=== PATIENT | female | born 1940 | race Caucasian/White ===

== ENCOUNTER → 2018-10-30 | Outpatient (CLI) | payer OTHER | LOC: M.ULTRA 09:30 | DX: K76.0 Fatty (change of) liver, not elsewhere classified (principal); Z90.49 Acquired absence of other specified parts of digestive tract ==

== ENCOUNTER → 2019-07-09 | Outpatient (CLI) | payer OTHER | LOC: M.NUC 06:52 | DX: R10.10 Upper abdominal pain, unspecified (principal) ==

== ENCOUNTER → 2019-07-16 | Outpatient (CLI) | payer OTHER ==
[2019-07-16 08:22] LABS: CREATININE 0.8 mg/dL (0.6-1.3)
== END ==
LOC: M.LAB 07:56 → M.CT 09:00
PROVIDERS: Internal Medicine Gastroenterology
DX: K76.0 Fatty (change of) liver, not elsewhere classified (principal); K57.30 Diverticulosis of large intestine without perforation or abscess without bleeding; K56.41 Fecal impaction; I25.10 Atherosclerotic heart disease of native coronary artery without angina pectoris; I70.0 Atherosclerosis of aorta

== ENCOUNTER → 2020-12-03 | Outpatient (CLI) | payer MEDICARE | LOC: M.MRI 10:48 | PROVIDERS: ATTEND Family Medicine | DX: M47.812 Spondylosis without myelopathy or radiculopathy, cervical region (principal); M48.02 Spinal stenosis, cervical region; M51.36 Other intervertebral disc degeneration, lumbar region; E11.9 Type 2 diabetes mellitus without complications; M25.511 Pain in right shoulder; G89.29 Other chronic pain; M54.2 Cervicalgia; I10 Essential (primary) hypertension; K76.0 Fatty (change of) liver, not elsewhere classified ==

== ENCOUNTER 2021-04-12 13:22 | Emergency (ER) | payer MEDICARE ==
[~2021-04-12] VITALS: Ht 162.6 cm; Wt 63.5 kg
[2021-04-12] MEDS ORDERED: METFORMIN HCL500 M3 PO (13:35)
[2021-04-12] MEDS ORDERED: TRULICITY0.75 MG/0. SUBQ (13:35)
[2021-04-12] MEDS ORDERED: VERAPAMIL ER100 MG PO (13:35)
[2021-04-12 13:55] LABS: ABSOLUTE EOSINOPHILS 0.1 thou/uL (0.0-0.7); ABSOLUTE MONOCYTES 1.1 thou/uL (0.0-1.2); ABSOLUTE NEUTROPHILS 8.7 thou/uL (1.6-8.1); BASOPHILS 0.2 %; EOSINOPHILS 0.5 %; HEMATOCRIT 38.9 % (37.0-47.0); HEMOGLOBIN 13.1 gm/dL (12.0-15.0); LYMPHOCYTES 16.6 %; MCH 28.4 pg (26.0-34.0); MCHC 33.7 g/dL (28.0-37.0); MCV 84.3 fL (80.0-100.0); MONOCYTES 9.1 %; MPV 9.7 fl. (7.2-11.1); NUCLEATED RBCS 0 /100WBC; PLATELET COUNT* 372 thou/uL (150-400); POLYS 73.6 %; RBC 4.61 mil/uL (4.20-5.00); RDW-CV 13.9 % (10.5-14.5); WBC 11.9 thou/uL (4.0-11.0)
[2021-04-12 14:05] LABS: BE -3.8 mmol/L (-2 to +3); PCO2 25.4 mmHg (35.0-45.0); PO2 78.6 mmHg (75.0-100.0); pH 7.473 (7.340-7.450)
[2021-04-12 14:15] LABS: CALCIUM 9.3 mg/dL (8.5-10.1); POTASSIUM 3.9 mmol/L (3.5-5.1)
[2021-04-12 14:20] LABS: ALBUMIN 3.1 g/dL (3.4-5.0); TOTAL BILIRUBIN 0.5 mg/dL (<0.1-1.0); TOTAL PROTEIN 7.1 g/dL (6.4-8.2)
[2021-04-12] MEDS ORDERED: DEXAMETHASONE 44 M1 PO (14:57)
[2021-04-12 15:26] VITALS: BP 168/89
--- NOTE | 2021-04-12 15:35 | EKG ---
[place] [address] ELECTROCARDIOGRAM REPORT Name: QUANANDREWE Room: [facility]#: [id number] Admission: 04/12/21 Attend Phys: Discharge: 04/12/21 Date of : 40 Date of Service: 04/12/21 1342 Report #: [id number] THIS REPORT FOR: //name// [facility] ED Test Date: 2021-04-12 Test Time: 13:42:47 Pat Name: ANDREW GLASS Department: Room: Gender: [employer]: JUAREZ : 1940 Requested By: Wilber Tanner Order Number: [id number] : Luciano Manzo Measurements Intervals [place] Rate: 118 P: 50 DE: 145 QRS: -46 QRSD: 88 T: 55 QT: 331 QTc: 464 Interpretive Statements Sinus tachycardia Inferior infarct, old Anterior infarct, old No previous ECG available for comparison Electronically Signed On 04-12-2021 15:34:53 [employer]ING [employer] by Luciano Manzo [email or web address] <ELECTRONICALLY SIGNED> By: Luciano Manzo MD, [facility] 04/12/21 1534 1342 1342 Luciano Manzo MD, FAC /EPI
== END 2021-04-12 15:27 | disposition home or self-care (01) ==
LOC: M.ERS 13:22
PROVIDERS: Family Medicine
DX: U07.1 COVID-19 (principal); Z90.710 Acquired absence of both cervix and uterus; Z79.899 Other long term (current) drug therapy